=== PATIENT | male | born 1985 | race Caucasian/White ===

== ENCOUNTER 2016-12-23 09:13 | Emergency (ER) | payer BC ==
[~2016-12-23] VITALS: Ht 170.2 cm; Wt 90.7 kg
[2016-12-23 09:24] VITALS: BP_SYST 111
[2016-12-23] MEDS ORDERED: CYCLOBENZAPRINE HCL 10 MG TABLET (FLEXERIL) PO ONE (09:45)
[2016-12-23] MEDS ORDERED: OXYCODONE/ACETAMINOPHEN *10*mg/325 mg TABLET PO ONE ×2 (09:45→12:15)
[2016-12-23] MEDS ORDERED: KETOROLAC TROMETHAMINE 60 MG/2 ML VIAL IM ONE (09:45)
[2016-12-23] MEDS ORDERED: DIAZEPAM 5 MG TABLET (VALIUM) PO ONE (12:15)
== END 2016-12-23 16:24 | disposition home or self-care (01) ==
LOC: SED 09:13
DX: S33.5XXA Sprain of ligaments of lumbar spine, initial encounter (principal); X58.XXXA Exposure to other specified factors, initial encounter; Y93.89 Activity, other specified; Y92.89 Other specified places as the place of occurrence of the external cause; Y99.8 Other external cause status
CPT/HCPCS: 72131; 96372; 99284; J1885

== ENCOUNTER 2020-11-18 16:26 | Emergency (ER) | payer BC, OTHER ==
[~2020-11-18] VITALS: Ht 170.2 cm; Wt 81.6 kg
[2020-11-18 16:38] VITALS: BP_SYST 126
--- NOTE | 2020-11-18 16:45 | NUR ---
PT CAME TO ER C/O INTERMITTENT [place], NAUSEA, VISUAL DISTURBANCES AND SENSITIVITY TO LIGHT AND SOUND. STATES TODAY HE "PASSED OUT ON THE COUCH", DENIES HITTING HEAD OR TRAUMA. PT IS AMBULATORY, AAOX4, V/S STABLE.
--- NOTE | 2020-11-18 16:47 | NUR ---
Patient to ER bed 4 to gown for evaluation. Side rails up. Report given to BRISEDYA REDMOND.
--- NOTE | 2020-11-18 16:58 | NUR ---
ER DR. WHITE AT THE BEDSIDE EXAMINING PT
--- NOTE | 2020-11-18 17:09 | NUR ---
PT UP TO BATHROOM, AMBULATED WITH STEAY GAIT
--- NOTE | 2020-11-18 17:12 | NUR ---
LAB AT THE BEDSIDE FOR BLOOD DRAW
[2020-11-18 17:27] LABS: BASOPHILS # (AUTO) 0.1 K/uL (0.0-0.2); BASOPHILS % (AUTO) 0.9 % (0.0-2.0); EOSINOPHILS # (AUTO) 0.1 K/uL (0.0-0.4); EOSINOPHILS % (AUTO) 0.9 % (0.0-4.0); HEMATOCRIT 46.5 % (36-54); HEMOGLOBIN 15.9 g/dL (14.0-18.0); LYMPHOCYTES # (AUTO) 1.9 K/uL (1.0-5.5); LYMPHOCYTES % (AUTO) 26.1 % (20.5-51.5); MEAN CORPUSCULAR HEMOGLOBIN 33 pg (27-31); MEAN CORPUSCULAR HGB CONC 34 % (32-36); MEAN CORPUSCULAR VOLUME 97 fL (79.0-98.0); MONOCYTES # (AUTO) 0.7 K/uL (0.0-1.0); MONOCYTES % (AUTO) 9.2 % (1.7-9.3); NEUTROPHILS # (AUTO) 4.7 K/uL (1.8-7.7); NEUTROPHILS % (AUTO) 62.9 % (40.0-70.0); PLATELET COUNT (AUTO) 193 K/uL (130-430); RED BLOOD CELL COUNT(AUTO) 4.77 MIL/uL (4.2-6.2); RED CELL DISTRIBUTION WIDTH 13.2 % (9.0-15.0); WHITE BLOOD COUNT (AUTO) 7.4 K/uL (4.8-10.8)
[2020-11-18 17:36] LABS: BARBITURATE, URINE NEGATIVE (NEG <=200); BENZODIAZEPINE, URINE NEGATIVE (NEG <=150); CANNABINOID, URINE POSITIVE (NEG <=50); COCAINE, URINE NEGATIVE (NEG <=150); METHAMPHETAMINES SCREEN,URINE NEGATIVE (NEG <=500); OPIATE, URINE NEGATIVE (NEG <=100); PHENCYCLIDINE SCREEN,URINE NEGATIVE (NEG <=25); URINE AMPHETAMINE NEGATIVE (NEG <=500); URINE METHADONE NEGATIVE (NEG <=200); URINE OXYCODONE SCREEN NEGATIVE (NEG <=100)
[2020-11-18 17:37] LABS: UR TRICYCLIC ANTIDEPRESSANTS NEGATIVE (NEG <=300); URINE PROPOXYPHENE SCREEN NEGATIVE (NEG <=300)
[2020-11-18 17:38] LABS: CALCIUM 9.2 mg/dL (8.4-11.0); CREATININE 1.03 mg/dL (0.55-1.30)
[2020-11-18 17:44] LABS: ALBUMIN 4.3 g/dL (3.4-4.8); TOTAL BILIRUBIN 0.7 mg/dL (0.0-1.0)
--- NOTE | 2020-11-18 18:30 | NUR ---
Patient transported to radiology via WC, accompanied by STAFF.
[2020-11-18] MEDS ORDERED: IBUP-1969 PO (19:08)
[2020-11-18 19:19] VITALS: BP_SYST 134
--- NOTE | 2020-11-18 19:21 | NUR ---
Patient given written and verbal discharge instructions and verbalizes understanding. ER MD discussed with patient the results and treatment provided. Patient in stable condition. ID arm band removed. Rx of IBUPROFEN given. Patient educated on pain management and to follow up with PMD. Pain Scale 0/10. Opportunity for questions provided and answered. Medication side effect fact sheet provided.
== END 2020-11-18 19:21 | disposition home or self-care (01) ==
LOC: SED 16:26
DX: R55 Syncope and collapse (principal); R51.9 Headache, unspecified; Z79.899 Other long term (current) drug therapy
CPT/HCPCS: 36415; 70450-TC; 76376; 80053; 80307; 85025; 93005; 99285

== ENCOUNTER 2022-05-24 00:07 | Emergency (ER) | payer MEDICAID, OTHER ==
[~2022-05-24] VITALS: Ht 167.6 cm; Wt 81.6 kg
[~2022-05-24 00:07] MED LIST: IBUP-1969 PO
[2022-05-24 00:50] VITALS: BP_SYST 121
--- NOTE | 2022-05-24 00:54 | NUR ---
Patient triaged and placed in waiting room. VSS and patient appears in no acute distress at this time. Accompanied by gf, awaiting available bed, and MD notified of need for MSE.
--- NOTE | 2022-05-24 02:27 | NUR ---
Patient to ER bed 3 to gown for evaluation. Side rails up. Report given to Aren REDMOND (reg).
--- NOTE | 2022-05-24 02:58 | NUR ---
ER at bedside examining patient.
[2022-05-24] MEDS ORDERED: KETOROLAC TROMETHAMINE 15 MG VIAL IM ONE (03:00)
[2022-05-24 03:32] LABS: BILIRUBIN,URINE NEGATIVE (NEGATIVE); BLOOD, URINE NEGATIVE (NEGATIVE); CLARITY/URINE CLEAR (CLEAR); COLOR,URINE YELLOW (YELLOW); GLUCOSE,URINE NEGATIVE (NEGATIVE); KETONES,URINE NEGATIVE (NEGATIVE); LEUKOCYTE ESTERASE ,URINE NEGATIVE (NEGATIVE); NITRITE, URINE NEGATIVE (NEGATIVE); PROTEIN URINE NEGATIVE (NEGATIVE); UROBILINOGEN,URINE 0.2 (0.2-1.0)
[2022-05-24 03:44] LABS: BASOPHILS % (AUTO) 0.6 % (0.0-2.0); EOSINOPHILS # (AUTO) 0.1 K/uL (0.0-0.4); EOSINOPHILS % (AUTO) 1.8 % (0.0-4.0); HEMATOCRIT 44.8 % (36-54); HEMOGLOBIN 15.3 g/dL (14.0-18.0); LYMPHOCYTES # (AUTO) 2.2 K/uL (1.0-5.5); LYMPHOCYTES % (AUTO) 27.8 % (20.5-51.5); MEAN CORPUSCULAR HEMOGLOBIN 33 pg (27-31); MEAN CORPUSCULAR HGB CONC 34 % (32-36); MEAN CORPUSCULAR VOLUME 96 fL (79.0-98.0); MONOCYTES # (AUTO) 0.6 K/uL (0.0-1.0); MONOCYTES % (AUTO) 7.7 % (1.7-9.3); NEUTROPHILS % (AUTO) 62.1 % (40.0-70.0); PLATELET COUNT (AUTO) 199 K/uL (130-430); RED BLOOD CELL COUNT(AUTO) 4.67 MIL/uL (4.2-6.2); RED CELL DISTRIBUTION WIDTH 13.6 % (9.0-15.0); WHITE BLOOD COUNT (AUTO) 8.1 K/uL (4.8-10.8)
[2022-05-24 03:57] LABS: CALCIUM 8.9 mg/dL (8.4-11.0); CREATININE 0.88 mg/dL (0.55-1.30)
[2022-05-24 04:02] LABS: ALBUMIN 4.1 g/dL (3.4-4.8); TOTAL BILIRUBIN 0.7 mg/dL (0.0-1.0)
[2022-05-24] MEDS ORDERED: IBUP-1969 PO (05:44)
[2022-05-24] MEDS ORDERED: LEVO-62 PO (05:44)
[2022-05-24 06:22] VITALS: BP_SYST 138
--- NOTE | 2022-05-24 06:24 | NUR ---
Patient given written and verbal discharge instructions and verbalizes understanding. ER MD discussed with patient the results and treatment provided. Patient in stable condition. Rx of IBUPROPHEN AND KEFLEX given. Patient educated on pain management and to follow up with PMD. Pain Scale . Opportunity for questions provided and answered. Medication side effect fact sheet provided.
== END 2022-05-24 06:24 | disposition home or self-care (01) ==
LOC: SED 00:07
DX: N50.812 Left testicular pain (principal); N45.1 Epididymitis; R11.0 Nausea; Z79.899 Other long term (current) drug therapy
CPT/HCPCS: 99285; 80053; 85025; 36415; 76870; 96372; 87491; 81003; J1885